=== PATIENT | male | born 1960 | race Caucasian/White ===

== ENCOUNTER 2025-03-19 11:32 | Emergency (ER) | payer BC, SELFPAY ==
--- OUTSIDE RECORDS SUMMARY | 2025-03-19 11:40 | XMS_ITS | Encounter Summary ---
Author Organization [facility] Address [address] [place] [address] Care Team Providers Care Tools Administrator Name Role Phone Terry Mcconnell DO Primary Care Provider [phone] Encounter Details Date Type Department Care Team (Late Contact Info) Description 01/22/2025 Results Follow-Up [facility] [address] [facility] [address] [place] [address] Terry Mcconnell DO [address] [facility] [address] [place] [address] HEMOGLOBIN A1C Social History Tobacco Use Types Packs/Day Years Used Date Smoking Tobacco: Every Day Cigarettes 0.3 20 Passive Smoke Exposure: Past Smokeless Tobacco: Never Alcohol Use Standard Drinks/Week Comments No 0 (1 standard drink = 0.6 oz pur e alcohol) rare Sex and Gender Information Value Date Recorded Sex Assigned at Not on file Legal Sex Male 4: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 [address] [place] [address] Arnel Fabian MD [address] [facility] [address] [place] [address] 05/18/2025 8:15 AM CDT Office Visit [facility] - [facility] - Ophthalmology [address] [place] [address] Brendan Kerr MD [address] [place] [address] 07/22/2025 8:00 AM INDUSTRIAL HYGIENE ENGINEER Office Visit [facility] [address] [facility] [address] [place] [address] Terry Mcconnell DO [address] [facility] [address] [place] [address] Scheduled Orders Name Type Priority Associated Diagnoses Orde r Schedule HEMOGLOBIN A1C Lab Routine 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) Abnormal CBC Expected: 06/24/2025, Expires: 01/22/2026 COMPREHENSIVE METABOLIC PANEL Lab Routine 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) Abnormal CBC Expected: 06/24/2025, Expires: 01/22/2026 CBC WITH DIFFERENTIAL Lab Routine 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) Abnormal CBC Expected: 06/24/2025, Expires: 01/22/2026 documented as of this encounter Visit Diagnoses Diagnosis 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)- Primary Screening for prostate cancer Special screening for malignant neoplasm of prostate Abnormal CBC Other abnormal blood chemistry documented in this encounter Care Teams Tools Administrator Relationship Specialty Start Date End Date Terry Mcconnell DO [address] [facility] [address] [place] [address] PCP - General Family Practice 02/27/24 documented as of this encounter
--- OUTSIDE RECORDS SUMMARY | 2025-03-19 11:40 | XMS_ITS ---
Author Organization [facility] rofessional Office [facility] Address [address] [place] [address] Care Team Providers Care Sales Effectiveness Manager Name Role Phone Terry Mcconnell Primary Care Provider [phone] Active Problems Patient Care Coordination No te Formatting of this note migh t be different from the original. Arnel Fabian MD- [facility] ( [facility]) Problem Noted Date Diagnosed Date Type 2 diabetes mellitus with microalbuminuria 1 08/23/2023 Hypertensive heart failure 02/27/2024 ACC/AHA stage B heart failure 02/27/2024 Mixed hyperlipidemia 2021 Precordial pain 2021 History of bladder cancer 05/22/2016 Type 2 diabetes mellitus wit h hyperglycemia, without long-term current use of insulin 10/21/2015 Overview (10/21/2015): October 2014 Renal cyst, right 05/10/2015 CAD (coronary artery disease) 10/13/2014 Overview (09/28/2018): Followed by DR Domenico Espinoza Stent 95% RCA 2009 Stent 95% OM1 February 20152018----2 stents one to RCA and one to first diagonal Tobacco abuse 10/13/2014 Old [place] (myocardial infarction) 10/13/2014 SEGUNDO (obstructive sleep apnea) 10/13/2014 Overview (01/18/2022): Uses cpap Current Treatment and Therapy Plans No current plan information found. Past Treatment and Therapy Plans No past plan information found. Lifetime Dose Tracking * Chemical Lifetime Dose Automatic Entry Manual Entr y Effective Dose 19.7 mSv 19.7 mSv 0 mSv Total DLP 1,582 DLP 1,582 DLP 0 DLP CTDIvol Max 14.4 mGy 14.4 mGy 0 mGy CTDIvol Min 12 mGy 12 mGy 0 mGy Resolved Problems Problem Noted Date Diagnosed Date Resolved Date Type 2 diabetes mellitus wit h hypoglycemia without coma, without long-term current use of insulin 06/23/2024 01/15/2025 Benign hypertension 03/19/2024 01/16/20 25 Urothelial carcinoma of bladder 10/07/2022 02/27/2024 Benign hypertension 2021 02/27/20 24 Dyspnea 2021 02/02/2023 Microalbuminuria 10/14/2017 06/23/2024 Overview (10/14/2017): Borderline--repeat on return. Slow urinary stream 08/28/2016 06/23/20 24 Malignant neoplasm of urinary bladder 05/22/2016 11/11/2020 Impotence 11/15/2015 06/23/2024 Impotence 08/16/2015 01/03/2016 Slow urinary stream 08/16/2015 10/13/19 18 Adrenal mass, left 05/10/2015 Urgency of urination 05/10/2015 016 Bladder cancer 10/13/2014 06/16/2016 Elevated glucose 10/13/2014 06/16/2016 Family history of diabetes mellitus 10/13/2014 06/23/2024
--- OUTSIDE RECORDS SUMMARY | 2025-03-19 11:40 | XMS_ITS | Encounter Summary ---
Author Organization [facility] Address [address] [place] [address] Care Team Providers Care Lead Principal Technical Architect Name Role Phone Terry Mcconnell DO Primary Care Provider [phone] Reason for Visit * Reason Comments Clinical Consult Before Scheduling Encounter Details Date Type Department Care Team (Late st Contact Info) Description 03/19/2025 Nurse Triage [facility] Primary Care [facility] [address] [facility] [address] [place] [address] Terry Mcconnell DO [address] [facility] [address] [place] [address] Social History Tobacco Use Types Packs/Day Years Used Date Smoking Tobacco: Every Day Cigarettes 0.3 20 Passive Smoke Exposure: Past Smokeless Tobacco: Never Alcohol Use Standard Drinks/Week Comments No 0 (1 standard drink = 0.6 oz pur e alcohol) rare Sex and Gender Information Value Date Recorded Sex Assigned at Not on file Legal Sex Male 4:39 AM 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 Will go to . 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 Requesting muscle relaxer, steroids. [facility] [place]. * Telephone Encounter - Janell Claire - 03/19/2025 10:19 AM CDT Copied from [facility] #[id number]. Topic: Symptomatic Care >> Mar 19, 2025 10:16 AM Janell Rizzo wrote: Has this patient seen any provider (current or former) at the requested clinic in the past? Yes, Select the appropriate age range and symptom Patient has symptoms and is seeking care. Caller Name: Phani Newby Callback Number: Telephone Information: Call Notes: bent over and pulled his back yesterday 03/18/25, pain at a 9 Age Range/Symptom: Adult 18+ - Is there an encounter open? No Transferred to [facility] Gwyn answered call. documented in this encounter Plan of Treatment Upcoming Encounters Date Type Department Care Team (Late st Contact Info) Description 04/01/2025 7:45 AM CDT Office Visit [facility] Heart [facility] Vascular - [facility] [address] [facility] [address] [place] [address] Arnel Fabian MD [address] [facility] [address] [place] [address] 05/18/2025 8:15 AM CDT Office Visit [facility] - [facility] [address] - Ophthalmology [address] [facility] [address] [place] [address] Brendan Kerr MD [address] [facility] [address] [place] [address] 07/22/2025 8:00 AM AUTO DAMAGE ESTIMATOR Office Visit [facility] Primary Care [facility] [address] [facility] [address] [place] [address] Terry Mcconnell DO [address] [facility] [address], [place] [address] documented as of this encounter Visit Diagnoses Not on filedocumented in this encounter Care Teams Lead Principal Technical Architect Relationship Specialty Start Date End Date Terry Mcconnell DO [address] [place] [address] [place] [address] PCP - General Family Practice 02/27/24 documented as of this encounter
--- OUTSIDE RECORDS SUMMARY | 2025-03-19 11:40 | XMS_ITS | Encounter Summary ---
Author Organization [facility] Address [address] [place] [address] Care Team Providers Care Stars Analytical Lead Name Role Phone Terry Mcconnell DO Primary Care Provider [phone] Encounter Details Date Type Department Care Team (Late st Contact Info) Description 03/18/2025 External Device Data STL ABSTRACTION Provider, Abstract NO ADDRESS ON FILE Social History Tobacco Use Types Packs/Day Years Used Date Smoking Tobacco: Every Day Cigarettes 0.3 20 Passive Smoke Exposure: Past Smokeless Tobacco: Never Alcohol Use Standard Drinks/Week Comments No 0 (1 standard drink = 0.6 oz pur e alcohol) rare Sex and Gender Information Value Date Recorded Sex Assigned at Not on file Legal Sex Male 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 Gender Identity Not on file Sexual Orientation Not on file documented as of this encounter Plan of Treatment Upcoming Encounters Date Type Department Care Team (Late st Contact Info) Description 04/01/2025 7:45 AM CDT Office Visit [facility] Heart and Vascular - [facility] [address] [place] [address] [address] [place] [address] Arnel Fabian MD [address] [place] [address] 05/18/2025 8:15 AM CDT Office Visit [facility] - [facility] - Ophthalmology [address] [place] [address] Brendan Kerr MD [address] [facility] [address] [place] [address] 07/22/2025 8:00 AM SENIOR 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 Office Visit [facility] Care [facility] [address] [facility] [address] [place] [address] Terry Mcconnell DO [address] [facility] [address], [place] [address] documented as of this encounter Visit Diagnoses Not on filedocumented in this encounter Care Teams Stars Analytical Lead Relationship Specialty Start Date End Date Terry Mcconnell DO [address] [place] [address] PCP - General Family Practice 02/27/24 documented as of this encounter
--- OUTSIDE RECORDS SUMMARY | 2025-03-19 11:40 | XMS_ITS | Encounter Summary ---
Author Organization [facility] Address [address] [place] [address] Care Team Providers Care Wood Flooring Specialist Name Role Phone Terry Mcconnell DO Primary Care Provider [phone] Encounter Details Date Type Department Care Team (Late st Contact Info) Description 03/17/2025 External Device Data STL ABSTRACTION Provider, Abstract [...] on file Legal Sex Male 4:39 AM NUT ROASTER HELPER Gender Identity Not on file Sexual Orientation Not on file documented as of this encounter Plan of Treatment Upcoming Encounters Date Type Department Care Team (Late st Contact Info) Description 04/01/2025 7:45 AM CDT Office Visit [facility] Heart and Vascular - [facility] [address] [place] [address] [address] [place] [address] Arnel Fabian MD [address] [place] [address] 05/18/2025 8:15 AM CDT Office Visit [facility]ists - [facility] - Ophthalmology [address] [place] [address] Brendan Kerr MD [address] [facility] [address] [place] [address] 07/22/2025 8:00 AM NUT ROASTER HELPER Office Visit [facility] Care [facility] [address] [facility] [address] [place] [address] Terry Mcconnell DO [address] [facility] [address], [place] [address] documented as of this encounter Visit Diagnoses Not on filedocumented in this encounter Care Teams Wood Flooring Specialist Relationship Specialty Start Date End Date Terry Mcconnell DO [address] [place] [address] PCP - General Family Practice 02/27/24 documented as of this encounter
[2025-03-19 11:41] VITALS: BP 126/76; PULSE 85; RESP 16; TEMP 36.6; O2SAT 96
--- OUTSIDE RECORDS SUMMARY | 2025-03-19 11:41 | XMS_ITS | Encounter Summary ---
Author Organization [facility] Address [address] [place] [address] Care Team Providers Care Wash Worker Name Role Phone Terry Mcconnell DO Primary Care Provider [phone] Encounter Details Date Type Department Care Team (Late st Contact Info) Description 03/17/2009 Outpatient Historical HIS PATIENT IN A BED Valentín Gabriel MD [address] [facility] [address] [place] [address] Social History Tobacco Use Types Packs/Day Years Used Date Smoking Tobacco: Never Assessed Sex and Gender Information Value Date Recorded Sex Assigned at Not on file Legal Sex Male 4:39 AM ORE SMELTER Gender Identity Not on file Sexual Orientation Not on file documented as of this encounter Plan of Treatment Upcoming Encounters Date Type Department Care Team (Late st Contact Info) Description 04/01/2025 7:45 AM CDT Office Visit [facility] Heart and Vascular - [facility] [address] [place] [address] [address] [place] [address] Arnel Fabian MD [address] [facility] [address] [place] [address] 05/18/2025 8:15 AM CDT Office Visit [facility]ists - [facility] - Ophthalmology [address] [facility] [address] [place] [address] Brendan Kerr MD [address] [facility] [address] [place] [address] 07/22/2025 8:00 AM ORE SMELTER Office Visit [facility] Primary Care [facility] [address] [facility] [address] [place] [address] Terry Mcconnell DO [address] [facility] [address] [place] [address] documented as of this encounter Procedures Procedure Name Priority Date/Time Associated Diagnosis Comments PATHOLOGY Routine 03/25/2009 10:06 AM CDT XR RETROGRADE PYELOGRM W WO KUB Routine 03/25/2009 9:00 AM CDT HEMOGLOBIN AND HEMATOCRIT Routine 03/19/2009 3:35 PM CDT TYPE AND SCREEN Routine 03/19/2009 3:24 PM CDT documented in this encounter Results * PATHOLOGY (03/25/2009 10:06 AM CDT) FINAL REPORT [facility] [address] [place], [place] [address] Patient: KIEL SUE : 1960 Procedure Date: 03/25/2009 Accession Date: 03/25/2009 Case No: [id number] Ordering Dr: VALENTÍN GABRIEL Case type SW is performed by [place], [place]; all other case types are performed by [facility] [place] [place] SURGICAL PATHOLOGY & NON-GYNECOLOGIC CYTOPATHOLOGY REPORT DIAGNOSIS URINARY BLADDER, TRANSURETHRAL RESECTION: - NONINVASIVE LOW-GRADE PAPILLARY UROTHELIAL CARCINOMA. Specimen Description: Bladder tumor. Operative Procedure: Bilateral retrograde pyelograms, transurethral resection of bladder tumor. Patient Information/Histo ry/Diagnosis: Bladder tumor. Gross: Received in a single container labeled Kiel Sue., bladder tumor are eight pieces of merino tissue that range from 0.5 to 0.8 cm in greatest dimension. The entire specimen is submitted in cassette A1. [facility] 03.25.2009 02:11 pm Microscopic: The slides are labeled [id number], Kiel Sue. Sections of the bladder tumor show multiple fragments of a noninvasive low- grade papillary neoplasm characterized by urothelium of increased thickness with mild cytologic atypia and scattered mitotic figures lining slender branching papillary cores. There is a minor inverted growth pattern but the overall pattern is exophytic. Some of the proliferation shows minimal or no thickening of the urothelium and absent atypia, but elsewhere the features are clearly those of low-grade urothelial carcinoma. No stromal invasion is seen. No muscularis propria is present for evaluation. Dr. Cheatham has reviewed the slides and agrees with the interpretation. [facility] 03.26.2009 01:54 pm Staging Form: Yes. ELECTRONIC SIGNATURE FOR KATHY RODGERS MD- 03/26/09 02:52 pm [facility] 03/25/2009 10:0 6 AM CDT Valentín Gabriel MD PATHOLOGY/CYTOLOGY ORDERABL ES Final Result [facility] CLIA# [id number] [address] [place] [address] * XR RETROGRADE PYELOGRM W WO KUB (03/25/2009 9:00 AM CDT) Anatomical Region Laterality Modality Abdomen Other 03/25/2009 9:00 AM CDT Narrative 04/06/2009 8:02 AM CDT [facility] [address] [place], [place] [address] Admit Date: 03/25/2009 KIEL SUE Sex: M Admit Prov: VALENTÍN GABRIEL Date: 1960 Primary Care Prov: [id number] MERRITT CMRN: [id number] Room: [facility] SSN: IMAGING SERVICES Ordering Prov: VALENTÍN GABRIEL Accession Number: [id number] Interpretation Fluoroscopic guidance was used by the surgeon to assist with performance of this intra-operative procedure. Please refer to surgeon s operative report for specific details. Dictated by: RADIOLOGY, DEPARTMENT O Electronically signed by: RADIOLOGY, DEPARTMENT 04/06/2009 08:00 Transcribed: 04/06/2009 07:50 AMK Procedure Note Radiology, Radiologist - 04/06/2009 [facility] [address] [place], [place] [address] Admit Date: 03/25/2009 KIEL SUE Sex: M Admit Prov: SARAH VALENTÍN Date: 1960 Primary Care Prov: [id number] MERRITT CMRN: [id number] Room: [facility] SSN: IMAGING SERVICES Ordering Prov: VALENTÍN GABRIEL Interpretation Fluoroscopic guidance was used by the surgeon to assist withperformance of this intra-operative procedure. Please refer to surgeon s operativereport for specific details. Dictated by: RADIOLOGY, DEPARTMENT O Electronically signed by: RADIOLOGY, DEPARTMENT 04/06/2009 08:00 Transcribed: 04/06/2009 07:50 AMK Valentín Gabriel MD DIAGNOSTIC IMAGING ORDERABL ES Final Result * HEMOGLOBIN AND HEMATOCRIT (03/19/2009 3:35 PM CDT) Pathologist [facility] HEMATOCRIT 43.5 40.0 - 48.0 % [facility] HEMOGLOBIN 15.2 13.6 - 16.5 g/dL [facility] Blood specimen (specimen) 03/19/2009 3:35 PM CDT 03/19/2009 4:34 PM CDT Valentín Gabriel MD HEMATOLOGY ORDERABLES Final Result [facility] CLIA# [id number] [place] [address] * TYPE AND SCREEN (03/19/2009 3:24 PM CDT) HISTORY CHECK No Historical ABO/Rh [facility] SPECIMEN LIFE 3 days from OR date [facility] ANTIBODY SCREEN Negative [facility] ABO/RH TYPE A Positive [facility] Blood specimen (specimen) 03/19/2009 3:24 PM CDT us Valentín Gabriel MD BLOOD BANK ORDERABLES Edite d INTERFACE SYSTEM Refer to clinic/hospital department [facility] CLIA# [id number] [address] [place] [address] documented in this encounter Visit Diagnoses Not on filedocumented in this encounter Care Teams Wash Worker Relationship Specialty Start Date End Date Terry Mcconnell DO [address] [facility] [address] [place] [address] PCP - General Family Practice 02/27/24 documented as of this encounter
--- OUTSIDE RECORDS SUMMARY | 2025-03-19 11:41 | XMS_ITS | Encounter Summary ---
Author Organization [facility] [employer] [facility] Address [address] [place] [address] Care Team Providers Care Social Work Administrator Name Role Phone Terry Mcconnell DO Primary Care Provider [phone] Encounter Details Date Type Department Care Team (Late st Contact Info) Description 01/03/2016 Nurse Triage Report STL ABSTRACTION Parisa Pena, RN Social History Tobacco Use Types Packs/Day Years Used Date Smoking Tobacco: Every Day Cigarettes Smokeless Tobacco: Never Alcohol Use Standard Drinks/Week Comments Yes 0 (1 standard drink = 0.6 oz pur e alcohol) rare Sex and Gender Information Value Date Recorded Sex Assigned at Not on file Legal Sex Male 4:39 AM BRANCH CHIEF Gender Identity Not on file Sexual Orientation Not on file documented as of this encounter Progress Notes * Parisa Pena, RN - 01/03/2016 6:08 PM CDT CHART DOCUMENTATION ONLY Call Type: Triage Call Presenting Problem: My rx is not at the pharmacy (prednisone). Report feedback to Dr. Luis Staley. <<<<<<<< TRIAGE NOTE >>>>>>>> Triage Note: Associate Professor Of Library Media Parisa Pena added this note on Jan 03 2016 6:08PM: Medication escribed <<<<<<<< TRIAGE/OUTCOME >>>>>>>> Guideline Title: Medication Questions - Adult Recommended Disposition: Provide Health Information Original Inclination: Self Management Intended Action: Self Management Physician Contacted: No Caller has medication question(s) that was answered with available resources ? YES documented in this encounter Plan of Treatment Upcoming Encounters Date Type Department Care Team (Late st Contact Info) Description 04/01/2025 7:45 AM CDT Office Visit [facility] Heart and Vascular - [facility] [address] [facility] [address] [place] [address] Arnel Fabian MD [address] [facility] [address] [place] [address] 05/18/2025 8:15 AM CDT Office Visit [facility] Eye Specialists - [facility] - Ophthalmology [address] [facility] [address] [place] [address] Brendan Kerr MD [address] [facility] [address] [place] [address] 07/22/2025 8:00 AM BRANCH CHIEF Office Visit [facility] Primary Care [facility] [address] [facility] [address] [place] [address] Terry Mcconnell DO [address] [facility] [address] [place] [address] documented as of this encounter Visit Diagnoses Not on filedocumented in this encounter Care Teams Social Work Administrator Relationship Specialty Start Date End Date Terry Mcconnell DO [address] [facility] [address] [place] [address] PCP - General Family Practice 02/27/24 documented as of this encounter
--- OUTSIDE RECORDS SUMMARY | 2025-03-19 11:41 | XMS_ITS | Clinical Summary ---
Author Organization [facility] rofessional Office Plza Address [address] [place] [phone] Care Team Providers Care Group Billing Coordinator Name Role Phone JayeshTerry babcock Primary Care Provider Allergies Active Allergy Reactions Criticality Noted Date Comments Egg Headache Low 07/27/2014 Medications acetaminophen (TYLENOL ARTHRITIS) 650 mg Extended Release tablet Take 650 mg by mouth every 6 hours as needed for Pain. Active nitroglycerin (NITROSTAT) 0.4 mg Tablet, Sublingual PLACE 1 TABLET UNDER TONGUE EVERY 5 MINUTES NEEDED FOR CHEST PAIN. 25 Tablet 3 Active atenoloL (TENORMIN) 100 mg tabletIndicatio ns:Benign hypertension,Co ronary artery disease involving ute coronary artery of ute heart without angina pectoris,Precor dial pain TAKE 1/2 TABLET TWICE A DAY BY MOUTH 90 Tablet 3 4 Active clopidogreL (PLAVIX) 75 mg Tablet TAKE 1 TABLET BY MOUTH EVERY DAY 90 Tablet 3 4 Active pravastatin (PRAVACHOL) 80 mg tablet TAKE 1 TABLET BY MOUTH LATE IN THE DAY. 90 Tablet 3 4 Active metFORMIN (GLUCOPHAGE XR) 500 mg Extended Release 24 hour tablet Take 2 Tablets (1,000 mg) by mouth daily with breakfast. 360 Tablet 3 5 Active dulaglutide (Trulicity) 4.5 mg/0.5 mL injectionIndica tions:Type 2 diabetes mellitus with hyperglycemia, without long-term current use of insulin ([facility]) Inject 0.5 mL (4.5 mg) by subcutaneous injection every 7 days. 6 mL 3 5 Active empagliflozin (Jardiance) 10 mg tablet Take 1 Tablet (10 mg) by mouth daily in the morning. 90 Tablet 3 5 Active sulfamethoxazol e-trimethoprim (BACTRIM DS) 800-160 mg tablet Take 1 Tablet by mouth 2 times daily for 7 days. 14 Tablet 5 03/24/20 25 Active Active Problems Patient Care Coordination No te Formatting of this note migh t be different from the original. Arnel Fabian MD- [facility] ( [facility]) Problem Noted Date Diagnosed Date Type [...] by DR Domenico Espinoza Stent 95% RCA 2008 Stent 95% OM1 February 20152018----2 stents one to RCA and one to first diagonal Tobacco abuse 10/13/2014 Old MA (myocardial infarction) 10/13/2014 SEGUNDO (obstructive sleep apnea) 10/13/2014 Overview (01/18/2022): Uses cpap Resolved Problems Problem Noted Date Diagnosed Date [...] Family history of diabetes mellitus 10/13/2014 06/23/2024 Encounters Date Type Department Care Team Description 03/19/2025 Nurse Triage [place] [address] [place] [phone] Terry Mcconnell DO 03/18/2025 External Device Data STL ABSTRACTION Provider, Abstract 03/17/2025 8:00 AM CDT Procedure visit [facility] Urology at the [facility] Medicine [address] [place] [address] Lio Gabriel MD History of bladder cancer (Primary Dx); Acute cystitis without hematuria 03/17/2025 External Device Data STL ABSTRACTION Provider, Abstract 02/25/2025 External Device Data STL ABSTRACTION Provider, Abstract 02/25/2025 External Device Data STL ABSTRACTION Provider, Abstract 02/24/2025 External Device Data STL ABSTRACTION Provider, Abstract 01/27/2025 External Device Data STL ABSTRACTION Provider, Abstract 01/22/2025 Results Follow-Up [facility] [address] [place] [phone] Terry Mcconnell DO HEMOGLOBIN A1C 01/15/2025 1:30 PM CDT Office Visit [facility] [address] [place] [address] Terry Mcconnell DO Routine general medical examination at a health care facility (Primary Dx); Encounter for colorectal cancer screening; Acute recurrent maxillary sinusitis; 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); ACC/AHA stage B heart failure (CMS/HCC); Hypertensive heart failure (CMS/HCC); History of bladder cancer; Tobacco abuse; Screening for prostate cancer from Last 3 Months Immunizations Immunization Administration Dates Next Due (PREVNAR 20)(6 WKS UP) PNEUM OCOCCAL CONJUGATE VACCINE 20-VALENT (PCV20), POLYSACCHARIDE PPP667 CONJUGATE, ADJUVANT 0.5 ML (PF) IM 01/26/2022 (SPIKEVAX) (12 YRS UP PRIMAR Y SERIES) COVID-19 VACCINE - MRNA-1273(PF) 100 MCG/0.5 ML IM SUSP 11/01/2020,09/30/2020 INFLUENZA VACCINE QUADRIVALENT 6 MOS UP IM 05/24 INFLUENZA VACCINE QUADRIVALENT 6 MOS UP PF IM ,05/27/2020 INFLUENZA VACCINE TRIVALENT SPLIT VIRUS, (6 MOS UP), 0.5ML (PF), IM 06/23/2024 Influenza Seasonal Unspecified Formulation IM Family History Medical History Relation Name Comments Depression Brother CAJ Diabetes Brother CAJ Healthy Brother CAJ depression Other Father AHJ ALS Unknown Father AHJ Diabetes Maternal Grandfather CM Diabetes Maternal Grandmother MM Diabetes Mother MCJ Depression Sister EAK Healthy Sister EAK bipolar Relation Name Status Comments Brother CAJ Father AHJ (Age 48) Maternal Grandfather CM Maternal Grandmother MM Mother MCJ Sister EAK Social History Tobacco Use Types Packs/Day Years Used Date Smoking Tobacco: Every Day Cigarettes 0.3 20 Passive Smoke Exposure: Past Smokeless Tobacco: Never Tobacco Cessation:Ready to Q uit: No; Counseling Given: Yes Alcohol Use Standard Drinks/Week Comments No 0 (1 standard drink = 0.6 oz pur e alcohol) rare Sex and Gender Information Value Date Recorded Sex Assigned at Not on file Legal 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 Gender Identity Not on file Sexual Orientation Not on file Last Filed Vital Signs Vital Sign Reading Time Taken Comments Blood Pressure 119/72 01/15/2025 1:23 PM CDT Pulse 96 01/15/2025 1:23 PM CDT Temperature 36.3 C (97.4 F) 12/11/2024 9:20 AM CDT Respiratory Rate 16 12/11/2024 9:20 AM CDT Oxygen Saturation 98% 01/15/2025 1:23 PM CDT Inhaled Oxygen Concentration - - Weight 99.1 kg (218 lb 6.4 oz) 01/15/2025 1:23 P M CDT Height 190.5 cm (6' 3) 01/15/2025 1:23 PM CDT Body Mass Index 27.3 01/15/2025 1:23 PM CDT Plan of Treatment Upcoming Encounters Date Type Department Care Team (Late st Contact Info) Description 04/01/2025 7:45 AM CDT Office Visit [facility] - [facility] [address] [place] [address] Arnel Fabian MD [address] [place] [address] 05/18/2025 8:15 AM CDT Office Visit [facility] - [facility] - Ophthalmology [address] [place] [address] Brendan Kerr MD [address] [place] [address] 07/22/2025 8:00 AM LINING FINISHER Office Visit [facility] [address] [place] [address] Terry Mcconnell DO [address] [place] [address] Health Maintenance Due Date Last Done Comments DTAP/TDAP/TD VACCINES (1 - Tdap) 1981 COLORECTAL SCREENING 10/13/2007 Colorectal Cancer Screening 10/13/2007 FIT-DNA Q 3 years 10/13/2007 FIT/FOBT Q 1 year 10/13/2007 Flex Sig/CT Colonography Q 5 years 10/13/2007 ZOSTER VACCINE (1 of 2) 2012 RSV VACCINE (60+ or ) (1 - Risk 60-74 years 1-dose series) 2022 COVID-19 Vaccine (2023-2 5 season) 2024 11/01/2020, 09/30/2020 DIABETES ANNUAL FOOT EXAM 09/25/20242023, 10/02/2022, 08/18/2021, Additional history exists INFLUENZA VACCINE (#1) 2025 , 05/30/2023, 05/24/2022, Additional history exists DIABETES: A1C (Auto Order) 04/23/202501/21, 10/13/2024, 02/27/2024, Additional history exists DIABETES ANNUAL RETINAL EXAM 04/28/2025, 04/28/2024, 04/28/2024, Additional history exists DIABETES HBA1C Q 6 MONTHS 07/23/20252024, 10/13/2024, 02/27/2024, Additional history exists DIABETES MICROALBUMIN ANNUAL SCREEN 01/21/2026 01/21/2025, 02/27/2024, 05/30/2023, Additional history exists LDL CHOLESTEROL ANNUAL 01/21/2026 , 02/27/2024, 05/30/2023, Additional history exists Preventative Visit- Commercial Completed 0 01/15/2025, 06/23/2024, 01/18/2022, Additional history exists Medical Devices Implanted Type Area Dental Therapist Device Identifier Shelf Expiration Date Model / Serial / Lot Ring Tension Capsular Eyejet Mr-14c Left - [id number] Implanted:Qty : 1 on 09/30/20[place] [facility] [place] Left: Eye [facility] 12/10/2028 MR-14C LEFT / [id number] / CEEADO Ring Tension Capsular Type 14c Mr-1420 - [id number] Implanted:Qty : 1 on 10/14/2024 by [place]rendan Kerr [place] [facility] [place] Right: Eye [facility] 02/09/2029 MR-1420 / [id number] / CEGAEO Lens Iol Clareon 17.5 Cna0t0.175 - [id number] Implanted:Qty : 1 on 09/30/2024 by [place]rendan Kerr [place] [facility] [place] Left: Eye [facility] 04/04/2027 CNA0T0.17 5 / [id number] / Lens Iol Clareon 19.0 Cna0t0.190 - Mswb - [id number] Implanted:Qty : 1 on 10/14/2024 by Brendan Kerr MD at [facility] [place] Lens Right: Eye [facility] 05/13/2027 CNA0T0.19 0 / [id number] / Stent Polaris Ultra 6fr 30cm [id number] - [id number] Implanted:Qty : 1 on 07/01/2022 by Bari Agee MD at [facility] Stent Left: Ureter [employer] ABSTRACTOR [id number] 12/19/2024 [id number] / / [id number] Procedures Procedure Name Priority Date/Time Associated Diagnosis Comments URINE CULTURE Routine 03/17/2025 8:40 AM CDT History of bladder cancer CYTOLOGY, NON GYNE Routine 03/17/2025 8: 37 AM CDT History of bladder cancer MICROALBUMIN/CREATIN INE RATIO, RANDOM UR Routine 01/21/2025 12:31 PM CDT Encounter for colorectal cancer screening Acute recurrent maxillary sinusitis 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) ACC/AHA stage B heart failure (CMS/HCC) Hypertensive heart failure (CMS/HCC) History of bladder cancer Tobacco abuse Routine general medical examination at a health care facility Screening for prostate cancer PSA Routine 01/21/2025 12:28 PM CDT Encounter for colorectal cancer screening Acute recurrent maxillary sinusitis 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) ACC/AHA stage B heart failure (CMS/HCC) Hypertensive heart failure (CMS/HCC) History of bladder cancer Tobacco abuse Routine general medical examination at a health care facility Screening for prostate cancer CBC WITH DIFFERENTIAL Routine 01/21/2025 12:28 PM CDT Encounter for colorectal cancer screening Acute recurrent maxillary sinusitis 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) ACC/AHA stage B heart failure (CMS/HCC) Hypertensive heart failure (CMS/HCC) History of bladder cancer Tobacco abuse Routine general medical examination at a health care facility Screening for prostate cancer COMPREHENSIVE METABOLIC PANEL Routine 01/21/2025 12:28 PM CDT Encounter for colorectal cancer screening Acute recurrent maxillary sinusitis 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) ACC/AHA stage B heart failure (CMS/HCC) Hypertensive heart failure (CMS/HCC) History of bladder cancer Tobacco abuse Routine general medical examination at a health care facility Screening for prostate cancer TSH REFLEXIVE Routine 01/21/2025 12:28 PM CDT Encounter for colorectal cancer screening Acute recurrent maxillary sinusitis 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) ACC/AHA stage B heart failure (CMS/HCC) Hypertensive heart failure (CMS/HCC) History of bladder cancer Tobacco abuse Routine general medical examination at a health care facility Screening for prostate cancer HEMOGLOBIN A1C Routine 01/21/2025 12:28 PM CDT Encounter for colorectal cancer screening Acute recurrent maxillary sinusitis 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) ACC/AHA stage B heart failure (CMS/HCC) Hypertensive heart failure (CMS/HCC) History of bladder cancer Tobacco abuse Routine general medical examination at a health care facility Screening for prostate cancer LIPID PANEL Routine 01/21/2025 12:28 PM CDT Encounter for colorectal cancer screening Acute recurrent maxillary sinusitis 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) ACC/AHA stage B heart failure (CMS/HCC) Hypertensive heart failure (CMS/HCC) History of bladder cancer Tobacco abuse Routine general medical examination at a health care facility Screening for prostate cancer HM DIABETES EYE EXAM Routine 09/17/2019 from Last 3 Months or Most Recently Relevant to Health Maintenance Results * CYTOLOGY, NON GYNE (03/17/2025 8:37 AM CDT) CASE REPORT Medical Cytology Report Case: [id number] Authorizing Provider: Lio Gabriel MD Collected: 03/17/2025 08:37 AM Ordering Location: [facility] at Received: 03/18/2025 07:18 AM [facility] Pathologist: Kristy Scott MD Specimen: Urine, clean catch 2:22 PM CDT [facility] FINAL DIAGNOSIS Urine, voided: - Negative for high-grade urothelial carcinoma. - Dense acute inflammation. 2:22 PM CDT [facility] at 1422 CDT GROSS DESCRIPTION Received is a container labeled Phani Newby and voided urine. It contains 70 mL of clear yellow fluid. One ThinPrep made. SK 2:22 PM CDT [facility] MICROSCOPIC DESCRIPTION The slides are labeled [id number] and Phani Newby. The ThinPrep slide shows dense acute inflammation. There are scattered benign urothelial cells present. 2:22 PM CDT [facility] CLINICAL INFORMATION bladder tumor Z85.51 - History of bladder cancer [ICD-10-CM] 2:22 PM CDT [facility] COMMENT Special stain, immunohistochemical, and/or in situ hybridization results are interpreted with controls that demonstrate appropriate staining reactions. Note on use of immunohistochemistry reagents and in situ hybridization probes: These tests were developed and their performance characteristics determined by [facility], Department of Laboratory Medicine. It has not been cleared or approved by the U.S. Food and Drug Administration. The FDA has determined that such clearance or approval is not necessary. The test is used for clinical purposes. It should not be regarded as investigational or for research. This laboratory is certified to perform high complexity testing. Cases may have been signed out in part or completely in the following laboratories: [facility], CLIA #[id number] [address] [place] [address] [facility] [place] #[id number] [address] [place] [place] [address]. 2:22 PM CDT [facility] Body fluid URINE SPECIMEN OBTAINED BY CLEAN CATCH PROCEDURE / Unknown Collection / Unknown 03/17/2025 8:37 AM CDT 03/18/2025 7:18 AM CDT Lio Gabriel MD PATHOLOGY/CYTOLOGY ORDERABL ES Final Result Performing Organization Address City/[facility]/ZIP Co de Phone Number [facility]# [id number] [address] [place] [address] * MICROALBUMIN/CREATININE RATIO, RANDOM UR (01/21/2025 12:31 PM CDT) CREATININE, URINE 52 20 - 320 mg/dL [facility] ALBUMIN, URINE 0.6 See Note: mg/dL [facility] Comment: Reference Range: Reference Range Not established ALB/CREAT RATIO, URINE 12 <30 mg/g creat [facility] Comment: The ADA defines abnormalities in albumin excretion as follows: Albuminuria Category Result (mg/g creatinine) Normal to Mildly increased <30 Moderately increased 30-299 Severely increased > OR = 300 The ADA recommends that at least two of three specimens collected within a 3-6 month period be abnormal before considering a patient to be within a diagnostic category. Test Performed at: [facility] [id number] [address] Vani Zapata MD Urine URINE SPECIMEN OBTAINED BY CLEAN CATCH PROCEDURE / Unknown 01/21/2025 12:31 PM CDT 01/21/2025 12:32 PM CDT Terry Mcconnell DO URINE ORDERABLES Final Result [facility] [phone] [facility] [address] [address] * TSH REFLEXIVE (01/21/2025 12:28 PM CDT) Pathologist [facility] TSH 0.91 0.40 - 4.50 mIU/L [facility] Comment: FASTING:NO FASTING: NO Test Performed at: [facility] [address] [place] [address] Vani Zapata Blood 01/21/2025 12:2 8 PM CDT 01/21/2025 12:30 PM CDT Terry Mcconnell DO CHEMISTRY ORDERABLES Final Resul t [facility] [phone] [facility] [address] [place] [address] * (ABNORMAL) CBC WITH DIFFERENTIAL (01/21/2025 12:28 PM CDT) WBC 12.6(H) 3.8 - 10.8 Thousand/ uL [facility] RBC 5.14 4.20 - 5.80 Million/u L [facility] HEMOGLOBIN 16.2 13.2 - 17.1 g/dL [facility] HEMATOCRIT 48.1 38.5 - 50.0 % [facility] MCV 93.6 80.0 - 100.0 fL [facility] MCH 31.5 27.0 - 33.0 pg [facility] MCHC 33.7 32.0 - 36.0 g/dL [facility] Comment: For adults, a slight decrease in the calculated MCHC value (in the range of 30 to 32 g/dL) is most likely not clinically significant; however, it should be interpreted with caution in correlation with other red cell parameters and the patient's clinical condition. RDW 12.9 11.0 - 15.0 % [facility] PLATELETS 304 140 - 400 Thousand/ uL [facility] MPV 10.5 7.5 - 12.5 fL [facility] NEUTROPHIL ABSOLUTE 7,762 1,500 - 7,800 cells/uL [facility] LYMPHOCYTE ABSOLUTE 3,742 850 - 3,900 cells/uL [facility] MONOCYTE ABSOLUTE 769 200 - 950 cells/uL [facility] EOSINOPHIL ABSOLUTE 252 15 - 500 cells/uL [facility] BASOPHILS ABSOLUTE 76 0 - 200 cells/uL [facility] NEUTROPHIL 61.6 % [facility] LYMPHOCYTES 29.7 % [facility] MONOCYTE 6.1 % [facility] EOSINOPHILS 2.0 % [facility] BASOPHILS 0.6 % [facility] Comment: FASTING:NO FASTING: NO Test Performed at: [facility] [place] [address] [place] [address] Vani Zapata Blood 01/21/2025 12:2 8 PM CDT 01/21/2025 12:30 PM CDT Terry Mcconnell DO HEMATOLOGY ORDERABLES Final Resu lt [facility] [phone] [facility] [place] [address] [address] [address] * PSA (01/21/2025 12:28 PM CDT) Pathologist [facility] PSA 1.80 < OR = 4.00 ng/mL [facility] Comment: The total PSA value from this assay system is standardized against the WHO standard. The test result will be approximately 20% lower when compared to the equimolar-standardized total PSA ([employer]am[employer] [place]). Comparison of serial PSA results should be interpreted with this fact in mind. This test was performed using the Siemens chemiluminescent method. Values obtained from different assay methods cannot be used interchangeably. PSA levels, regardless of value, should not be interpreted as absolute evidence of the presence or absence of disease. Test Performed at: [facility] [address] [facility] [place] [address] Santa[place]itcorina Zapata MD Blood 01/21/2025 12:2 8 PM CDT 01/21/2025 12:30 PM CDT Terry Jayesh DO CHEMISTRY ORDERABLES Final Resul t [facility] [phone] [facility] [address] [facility] [place] [address] * (ABNORMAL) HEMOGLOBIN A1C (01/21/2025 12:28 PM CDT) HEMOGLOBIN A1C 8.7(H) <5.7 % of total Hgb [facility] Comment: For someone without known diabetes, a hemoglobin A1c value of 6.5% or greater indicates that they may have diabetes and this should be confirmed with a follow-up test. For someone with known diabetes, a value <7% indicates that their diabetes is well controlled and a value greater than or equal to 7% indicates suboptimal control. A1c targets should be individualized based on duration of diabetes, age, comorbid conditions, and other considerations. Currently, no consensus exists regarding use of hemoglobin A1c for diagnosis of diabetes for children. ESTIMATED AVERAGE GLUCOSE (MG/DL) 203 mg/dL [facility] ESTIMATED AVERAGE GLUCOSE (MMOL/L) 11.2 mmol/L [facility] Comment: FASTING:NO FASTING: NO Test Performed at: [place] [address] [address] Vani Zapata Blood 01/21/2025 12:2 8 PM CDT 01/21/2025 12:30 PM CDT Terry Mcconnell CHEMISTRY ORDERABLES Final Resul t [facility] [phone] [facility] [place] [address] [address] [address] * (ABNORMAL) LIPID PANEL (01/21/2025 12:28 PM CDT) CHOLESTEROL 114 <200 mg/dL [facility] HDL 37(L) > OR = 40 mg/dL [facility] TRIGLYCERIDE 142 <150 mg/dL [facility] LDL CALCULATED 54 mg/dL (calc) [facility] Comment: Reference range: <100 Desirable range <100 mg/dL for primary prevention; <70 mg/dL for patients with CHD or diabetic patients with > or = 2 CHD risk factors. LDL-C is now calculated using the Mariana calculation, which is a validated novel method providing better accuracy than the Friedewald equation in the estimation of LDL-C. Deion SCHMIDT et al. MEL. 2013;310(19): 4436-5936 (http://education.igobubble.M&D ANTIQUES & CONSIGNMENT/faq/CNP312) CHOL/HDL RATIO 3.1 <5.0 (calc) [facility] adriana Nielsen NON-HDL CHOLESTEROL 77 <130 mg/dL (calc) [facility] Comment: For patients with diabetes plus 1 major ASCVD risk factor, treating to a non-HDL-C goal of <100 mg/dL (LDL-C of <70 mg/dL) is considered a therapeutic option. Test Performed at: [facility] [place] [address] [address] SantaOsei Zapata Blood 01/21/2025 12:2 8 PM CDT 01/21/2025 12:30 PM CDT us Terry Mcconnell DO CHEMISTRY ORDERABLES Final Resul t [facility] [phone] [place] [address] [address] * (ABNORMAL) COMPREHENSIVE METABOLIC PANEL (01/21/2025 12:28 PM CDT) GLUCOSE 168(H) 65 - 99 mg/dL [facility] adriana Nielsen Comment: Fasting reference interval For someone without known diabetes, a glucose value >125 mg/dL indicates that they may have diabetes and this should be confirmed with a follow-up test. BUN 17 7 - 25 mg/dL [facility] adriana Nielsen CREATININE 0.88 0.70 - 1.35 mg/dL [facility] adriana Nielsen GFR 97 > OR = 60 mL/min/1. 73m2 [facility] adriana Nielsen BUN/CREAT RATIO SEE NOTE: 6 - 22 (calc) [facility] Comment: Not Reported: BUN and Creatinine are within reference range. SODIUM 139 135 - 146 mmol/L [facility] adriana Nielsen POTASSIUM 5.0 3.5 - 5.3 mmol/L [facility] adriana Nielsen CHLORIDE 103 98 - 110 mmol/L [facility] adriana Nielsen CO2 27 20 - 32 mmol/L [facility] adriana Nielsen CALCIUM 9.8 8.6 - 10.3 mg/dL [facility] adriana Nielsen TOTAL PROTEIN 7.2 6.1 - 8.1 g/dL [facility] adriana Nielsen ALBUMIN 4.4 3.6 - 5.1 g/dL [facility] [place] GLOBULIN 2.8 1.9 - 3.7 g/dL (calc) [facility] adriana Nielsen ALBUMIN/GLOBULIN RATIO 1.6 1.0 - 2.5 (calc) [facility] adriana Nielsen BILIRUBIN TOTAL 0.5 0.2 - 1.2 mg/dL [facility] [place] ALKALINE PHOSPHATASE 81 35 - 144 U/L [facility] AST 13 10 - 35 U/L [facility] ALT 16 9 - 46 U/L [facility] Comment: FASTING:NO FASTING: NO Test Performed at: [place] [address] [place] [address] SantaOsei Zapata Blood 01/21/2025 12:2 8 PM CDT 01/21/2025 12:30 PM CDT Terry Mcconnell DO CHEMISTRY ORDERABLES Final Resul t [facility] [phone] [place] [address] [place] [address] * DIABETES EYE EXAM (09/17/2019) Abstract Provider HEALTH MAINTENANCE Edited Resu lt - Final [facility]# [id number] [address] [place] [id number] from Last 3 Months or Most Recently Relevant to Health Maintenance Insurance [facility] NAMITA Astrid ACCESS Advance Directives For more information, please contact: [phone] * Full Code (Latest Code Status on File) Date Activated Date Inactivated Comments 12/11/2024 6:23 AM 12/11/2024 12:02 PM * Full Code Date Activated Date Inactivated Comments 12/11/2024 5:40 AM 12/11/2024 6:23 AM * Full Code Date Activated Date Inactivated Comments 10/14/2024 6:25 AM 10/14/2024 10:25 AM * Full Code Date Activated Date Inactivated Comments 09/30/2024 6:51 AM 09/30/2024 10:35 AM * Full Code Date Activated Date Inactivated Comments 06/29/2022 11:19 AM 07/01/2022 5:42 PM Care Teams Group Billing Coordinator Relationship Specialty Start Date End Date Terry Mcconnell DO [address] [id number] PCP - General Family Practice 02/27/24
--- OUTSIDE RECORDS SUMMARY | 2025-03-19 11:41 | XMS_ITS | Encounter Summary ---
Author Organization [facility] Address [address] [place] [address] Care Team Providers Care Appeals Officer Name Role Phone Terry Mcconnell DO Primary Care Provider [phone] Reason for Visit * Reason Comments Provider Call Encounter Details Date Type Department Care Team (Late st Contact Info) Description 10/02/2024 Telephone [facility] Primary [facility] [address] [facility] [address] [place] [address] Terry Mcconnell DO [address] [facility] [address] [place] [address] Provider Call Social History Tobacco Use Types Packs/Day Years Used Date Smoking Tobacco: Every Day Cigarettes 0.3 20 Passive Smoke Exposure: Past Smokeless Tobacco: Never Alcohol Use Standard Drinks/Week Comments No 0 (1 standard drink = 0.6 oz pur e alcohol) rare Sex and Gender Information Value Date Recorded Sex Assigned at Not on file Legal Sex Male 4:39 AM 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 #[id number]. Topic: CPA Information Request - Authorization >> Oct 02, 2024 3:18 PM Zeynep Fisher wrote: Caller is calling to check the status of an authorization for a medication. Caller Name: Zayra from [employer] Callback Number: [phone] Call Notes: needs pa Who is calling? Patient or Pharmacy If callers offers any of the following Prescription Plan information add it below (not required): Medication Name: dulaglutide (Trulicity) 4.5 mg/0.5 mL injection Rx Insurance Name: Patient Member ID: RX Bin#: [id number] PCN #: RX Group #: What is the status of the prior authorization? Payer Waiting for Response OF OPERATION AND LOGISTICS documented in this encounter Plan of Treatment Upcoming Encounters Date Type Department Care Team (Late st Contact Info) Description 04/01/2025 7:45 AM CDT Office Visit [facility] - [facility] [address] [facility] [address] [place] [address] Arnel Fabian MD [address] [facility] [address] [place] [address] 05/18/2025 8:15 AM CDT Office Visit [facility] - [address] [facility] [address] - Ophthalmology [address] [facility] [address] [place] [address] Brendan Kerr MD [address] [facility] [address] [place] [address] 07/22/2025 8:00 AM [employer] Office Visit [facility] Primary Care [facility] [address] [facility] [address] [place] [address] Terry Mcconnell DO [address] [facility] [address] [place] [address] documented as of this encounter Visit Diagnoses Not on filedocumented in this encounter Care Teams Appeals Officer Relationship Specialty Start Date End Date Terry Mcconnell DO [address] [place] [address] [address] [place] [address] PCP - General Family Practice 02/27/24 documented as of this encounter
--- NOTE | 2025-03-19 12:21 | ED_ITS ---
HPI - Back Pain/Injury General Chief Complaint: Back Pain/Injury Stated Complaint: Back Pain Time Seen by Provider: 03/19/25 11:45 Source: patient and RN notes reviewed Mode of arrival: ambulatory Limitations: no limitations History of Present Illness HPI Narrative: 64-year-old male presents to the ER complaining of low back pain since yesterday. Patient said he has a history of low back problems since surgeries to his lumbar back. 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 Patient denies any shooting pains specifically radiates throughout his lower back. Patient rates pain a 9/10. Patient has tried Tylenol and a leftover [place] at home and got it down to 7 of 10. Patient is having a hard time standing straight up or sitting because of the pain. Patient has a history of diabetes, bladder cancer, and a heart history. Patient denies any saddle anesthesia, weakness, urinary symptoms, or loss of bowel or bladder function. Related Data Home Medications ?Medication ?Instructions ?Recorded ?Confirmed ?Last Taken ?Type atenolol 100 mg tablet mg 03/19/25 Unknown History clopidogrel 75 mg tablet mg 03/19/25 Unknown History dulaglutide 4.5 mg/0.5 mL mg subcut 03/19/25 Unknown History subcutaneous pen injector (Trulicity) empagliflozin 10 mg tablet mg 03/19/25 Unknown History (Jardiance) empagliflozin 25 mg tablet mg 03/19/25 Unknown History (Jardiance) metformin 500 mg tablet,extended mg PO 03/19/25 Unknown History release 24 hr pravastatin 80 mg tablet mg 03/19/25 Unknown History Allergies Allergy/AdvReac Type Severity Reaction Status Date / Time No Known Allergies Allergy Verified 03/19/25 12:04 Review of Systems Review of Systems: CONSTITUTIONAL: Denies fever, chills, or sweats. EYES: Denies visual changes, redness, or discharge. ENT: Denies rhinorrhea, congestion, sore throat, or otalgia. CARDIOVASCULAR: Denies chest pain, palpitations, or edema. RESPIRATORY: Denies cough or dyspnea. GASTROINTESTINAL: Denies abdominal pain, nausea, vomiting, or diarrhea. GENITOURINARY: Denies dysuria or hematuria. SKIN: Denies rash or itching. MUSCULOSKELETAL: Positive for back pain. Negative for joint pain, or myalgia. NEUROLOGIC: Denies headache, numbness, loss of bowel or bladder, saddle anesthesia, or weakness. PSYCHIATRIC: Denies anxiety or depression. All other systems reviewed are negative, except as documented in HPI. PMFSH Comments At the time of my signature, I reviewed and agree with the nursing past medical, surgical, social, and family history. There is no relevant family history pertinent to the patient complaint. Exam Narrative: GENERAL: This is a well-nourished, well-developed adult, in no apparent distress. They are non ill-appearing, nontoxic appearing. HEAD: normocephalic, atraumatic. EYES: Sclera clear/white. Conjunctiva normal. Vision is grossly intact. Extraocular movements intact EARS: External ears normal, Hearing grossly intact. NOSE: External nose normal THROAT: Mucous membranes moist, NECK: Neck supple, CARDIOVASCULAR: Regular rate and rhythm RESPIRATORY: Respiratory rate normal, respiratory effort nonlabored, no respiratory distress SKIN: warm, Dry, intact with no suspicious lesions or rash, good texture and turgor. NEURO: awake, alert, and oriented to person, place and time. There were no obvious focal neurologic abnormalities. EXTREMITIES: No joint tenderness, effusion, or edema noted. BACK: No tenderness to palpation. No cervical, thoracic, lumbar point tenderness, crepitus, or step-offs. Pain elicited when patient stands straight upper when he is sitting down. No CVA tenderness. Course Course Emergency Course: Portions of this record may have been created with voice recognition software Level of Care: Express Care Visit Vital Signs Vital signs: Vital Signs Temperature 97.8 F 03/19/25 11:41 Pulse Rate 85 03/19/25 11:41 Respiratory Rate 16 03/19/25 11:41 Blood Pressure 126/76 03/19/25 11:41 Pulse Oximetry 96 03/19/25 11:41 Oxygen Delivery Room Air 03/19/25 11:41 Temperature 97.8 F 03/19/25 11:41 Pulse Rate 85 03/19/25 11:41 Respiratory Rate 16 03/19/25 11:41 Blood Pressure 126/76 03/19/25 11:41 Pulse Oximetry 96 03/19/25 11:41 Oxygen Delivery Room Air 03/19/25 11:41 Reviewed MDM - Back Pain/Injury MDM Narrative Medical decision making narrative: Patient likely has lumbar strain. Patient unable to take ibuprofen due to Plavix. Patient appears uncomfortable from his pain. Will prescribe patient short course of a Medrol Dosepak, hydrocodone as needed for severe pain, and muscle relaxers as needed for muscle spasms. Advised patient to not combine [place] muscle relaxers together as this may significantly increase the risk of drowsiness and respiratory depression. Discussed the importance of stretching and lumbar exercises as tolerated. Patient will monitor blood sugar closely being on the steroid. Discussed physical exam findings. Advised supportive measures and signs/symptoms to go to the ER. Pt is appropriate for outpt treatment and f/u. Differential Diagnosis Differential diagnosis: Likely lumbar radiculopathy, sciatica and strain of lumbar region Critical Care Time Critical Care Time Critical Care Time: No Discharge Plan Discharge Clinical Impression: Strain of lumbar region Qualifiers: Encounter type: initial encounter Qualified Code(s): S39.012A - Strain of muscle, fascia and tendon of lower back, initial encounter Patient Disposition: Home Condition: Stable Instructions: Low Back Strain (ED), Lower Back Exercises (ED) Additional Instructions: Take the Medrol Dosepak as directed. Take the muscle relaxer as directed. Do not drive or operate heavy machine, or work while taking the muscle relaxers or [place], as it can make you drowsy. Take Tylenol as needed for pain. Follow instructions on the bottle. Do not exceed more than and 1000 mg of Tylenol at a time, do not exceed more than 4000 mg of Tylenol in a day. Take [place] as directed, [place] does contain Tylenol, use of [place] for last resort for severe pain. Do not mix [place] and muscle relaxers together is may increased amount of drowsiness you may have. Please follow-up with your primary care provider if pain persist Rest. Avoid pushing, pulling, lifting --running or excessive walking-- or anything that worsens the symptoms You may try stretching your lower back or doing spinal decompression to help with symptoms. Go to the emergency department if you develop any numbness or tingling to your groin, weakness in your legs, or any loss of bowel or bladder function. Patient Language: Barbadian Prescriptions: New methylprednisolone 4 mg tablets,dose pack See Rx Instructions .ROUTE .COMPLEX Qty: 21 0RF Rx Instructions: for 6 days hydrocodone-acetaminophen 5-325 mg tablet 1 tablet PO Q8H PRN (Reason: pain) Qty: 10 0RF methocarbamol 750 mg tablet 750 mg PO TID Qty: 12 0RF No Action atenolol 100 mg tablet clopidogrel 75 mg tablet pravastatin 80 mg tablet metformin 500 mg tablet extended release 24 hr PO Jardiance 25 mg tablet Jardiance 10 mg tablet Trulicity 4.5 mg/0.5 mL pen injector SUBCUT Follow-up/Referrals: PHYSICIAN NOT ON STAFF,NONSTAFF [Primary Care Provider] - Time of Disposition: 12:15
== END 2025-03-19 12:21 | disposition home or self-care (01) ==
DX: S39.012A Strain of muscle, fascia and tendon of lower back, initial encounter (principal); X58.XXXA Exposure to other specified factors, initial encounter; I25.10 Atherosclerotic heart disease of native coronary artery without angina pectoris; E11.9 Type 2 diabetes mellitus without complications; Z79.84 Long term (current) use of oral hypoglycemic drugs; Z79.85 Long-term (current) use of injectable non-insulin antidiabetic drugs; Z95.5 Presence of coronary angioplasty implant and graft; Z85.51 Personal history of malignant neoplasm of bladder
CPT/HCPCS: 99203; G0463